=== PATIENT | male | born 1950 | race Caucasian/White ===

== ENCOUNTER 2021-05-25 09:10 | Day surgery (SDC) | payer OTHER ==
[2021-05-25] VITALS (9 sets, daily range): BP systolic 102–148; BP diastolic 50–76
[~2021-05-25] VITALS: Ht 185.4 cm; Wt 94.9 kg
[~2021-05-25 09:10] MED LIST: ACET-1008 PO; DICL387C TOP; cefazolin/dext.iso 2gm/50ml IV ONE; famotidine 20mg tablet PO ONE; ringers solution, lacted 1,000 ML IV SCH; sevoflurane 250ml liquid IH ONE; vancomycin 1,500 MG in NS 300ml IV soln IV ONE
[2021-05-25] MEDS ORDERED: vancomycin 1,000mg inj ONE ×2 (11:54→12:16)
[2021-05-25] MEDS ORDERED: TRANEXAMIC ACID 1 GM IN NACL,ISO-OS 100 ML IV ONE (13:06)
[2021-05-25] MEDS ORDERED: fentaNYL/PF 50MCG/1 ML 2ML syringe ONE (13:21)
[2021-05-25] MEDS ORDERED: midazolam 1 mg/ML 2ml injection ONE (13:22)
[2021-05-25] MEDS ORDERED: 0.9 % SODIUM CHLORIDE 10 ML VIAL ONE (14:01)
[2021-05-25] MEDS ORDERED: ROPIVAcaine 0.5% (5mg/ml) 30ml vial ONE (14:02)
[2021-05-25] MEDS ORDERED: dexamethasone sod phosphate 4mg/ml inj. ONE (14:02)
[2021-05-25] MEDS ORDERED: LIDOcaine 1%/PF 5ML 10 MG/ML VIAL ONE (14:02)
[2021-05-25] MEDS ORDERED: ePHEDrine 50MG/ML INJ. ONE (14:02)
[2021-05-25] MEDS ORDERED: propofol inj 20 ML IV ONE (14:02)
[2021-05-25] MEDS ORDERED: rocuronium 10mg/ml inj IV ONE (14:02)
[2021-05-25] MEDS ORDERED: LIDOcaine 2% (20mg/ml) 5ml vial ONE (14:02)
[2021-05-25] MEDS ORDERED: ondansetron/PF 4mg/2ml inj ONE (14:03)
--- NOTE | 2021-05-25 15:52 | NUR ---
Received from OR via , accompanied by Anesthesiologist DR CLAROS and report given by Anesthesiolgist. PT PRESENTS WITH 18G LEFT HAND, DRESSSING ON RIGHT SHOULDER SRY AND INTACT WITH POWDER PACK. VSS. Addendum: 05/25/21 at 1602 by Jessy Jimenez RN, RN Amended: Links added.
--- NOTE | 2021-05-25 17:02 | NUR ---
PT HAS MET ALL DC CRITERIA. DC INSTRUCTIONS REVIEWED WITH PT AND CLERK TELEGRAPH SERVICE OFFICERS. PT TAKEN OUT IN A WHEELCHAIR TO ZAHRA HERNÁNDEZ TO JR ORANTES. Addendum: 05/25/21 at 1728 by Jessy Jimenez RN, RN Amended: Links added.
== END 2021-05-25 17:02 ==
LOC: PAS 09:10 → EEVIPCON 12:30 → EDSTATUS 12:30 → PAS 17:02 → UNDODISIN 17:02
PROVIDERS: ATTEND Orthopaedic Surgery
DX: M19.011 Primary osteoarthritis, right shoulder (principal); G89.18 Other acute postprocedural pain; Z79.899 Other long term (current) drug therapy
CPT/HCPCS: 23472; 64415; 73030; 76942; 82948; C1713; C1776; J0690; J1100; J2250; J2405; J2704; J2795; J3010; J3370; J3490; J7030; J7040; J7120; Z7506; Z7508; Z7512; A4565; A4618; A7000